=== PATIENT | male | born 1970 | race Caucasian/White ===

== ENCOUNTER → 2023-10-31 | Emergency (ER) | payer OTHER ==
[~2023-10-31] VITALS: Ht 175.3 cm; Wt 72.1 kg
[~2023-10-31] MED LIST: METHYLPREDNISOLONE SOD SUCC 125 MG VIAL ONE
== END | disposition left against medical advice (07) ==
LOC: ER 11:57
DX: Z53.21 Procedure and treatment not carried out due to patient leaving prior to being seen by health care provider (principal)

== ENCOUNTER → 2023-11-29 | Emergency (ER) | payer OTHER ==
[~2023-11-29] VITALS: Ht 172.7 cm; Wt 68.0 kg
[~2023-11-29] MED LIST changes: -METHYLPREDNISOLONE SOD SUCC 125 MG VIAL ONE; +POVIDONE-IODINE 118 ML BOTT TOP ONE
== END | disposition left against medical advice (07) ==
LOC: ER 07:34
DX: R20.0 Anesthesia of skin (principal)